=== PATIENT | female | born 1985 | race American Indian/Alaskan Native ===

== ENCOUNTER 2018-05-16 11:23 | Emergency (ER) | payer OTHER ==
[2018-05-16 11:37] VITALS: BP 132/84
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
== END 2018-05-16 16:55 | disposition home or self-care (01) ==
LOC: ED 11:23
DX: H66.92 Otitis media, unspecified, left ear (principal); F17.200 Nicotine dependence, unspecified, uncomplicated; Z88.1 Allergy status to other antibiotic agents
CPT/HCPCS: 99282

== ENCOUNTER 2019-11-15 10:52 | Emergency (ER) | payer OTHER ==
[2019-11-15 11:39] VITALS: BP 114/51
--- NOTE | 2019-11-15 11:42 | Event Note ---
ED Screening Note ED Screening Note: pt presents with nasal congestion, generalized body aches, nausea, couple episodes of vomiting, rhinorrhea, coughing, sneezing, headache, left ear discomfort, left ear drainage, dry, itching throat. no fever, no diarrhea. states she has only been using tea to drink. PMHx none. she states that she thought she had an allergy to amoxicillin before in childhood but has had it in adulthood with no issues.
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
== END 2019-11-15 12:20 ==
LOC: ED 10:52
DX: H66.92 Otitis media, unspecified, left ear (principal); J06.9 Acute upper respiratory infection, unspecified; Z79.2 Long term (current) use of antibiotics; Z79.899 Other long term (current) drug therapy
CPT/HCPCS: 99281